=== PATIENT | male | born 1945 | race Caucasian/White ===

== ENCOUNTER 2017-03-31 17:49 | Emergency (ER) | payer OTHER, MEDICARE ==
[~2017-03-31] VITALS: Ht 172.7 cm; Wt 78.0 kg
[~2017-03-31 17:49] MED LIST: AMLO5 PO; PREV30CA36 PO; SINE25100 PO
[2017-03-31 17:53] VITALS: BP 182/99; PULSE 70; RESP 16; TEMP 98.8; O2SAT 97
[2017-03-31] MEDS ORDERED: MEMA28CA PO (18:05)
[2017-03-31] MEDS ORDERED: AMLO10TA2 PO (18:05)
[2017-03-31] MEDS ORDERED: oxyCODONE/ACETAMINOPHEN 5 MG/325 MG TAB PO ONE (18:15)
[2017-03-31] MEDS ORDERED: SODIUM CHLORIDE 0.9% FLUSH 10 ML FLUSH IVF PRN (18:15)
[2017-03-31 18:19] LABS: AUTOMATED NEUTROPHIL # 4.2 TH/MM3 (1.8-7.7); BASOPHIL # 0.3 TH/MM3 (0-0.2); BASOPHIL % 4.1 % (0.0-2.0); EOSINOPHIL # 0.3 TH/MM3 (0-0.4); EOSINOPHIL % 3.7 % (0.0-4.0); HEMATOCRIT 44.4 % (39.0-51.0); HEMO FLAGS DIFF FINAL; LYMPH % 28.7 % (9.0-44.0); LYMPHOCYTE # 2.1 TH/MM3 (1.0-4.8); MEAN CELL VOLUME 92.2 FL (80.0-100.0); MEAN CORPUSCULAR HEMOGLOBIN 30.8 PG (27.0-34.0); MEAN CORPUSCULAR HGB CONC 33.4 % (32.0-36.0); MONO % 5.5 % (0.0-8.0); PLATELET COUNT 197 TH/MM3 (150-450); RED BLOOD COUNT 4.82 MIL/MM3 (4.50-5.90); RED CELL DISTRIBUTION WIDTH 11.8 % (11.6-17.2); WHITE BLOOD COUNT 7.3 TH/MM3 (4.0-11.0)
[2017-03-31 18:30] VITALS: RESP 16; O2SAT 97
[2017-03-31 18:31] LABS: CHLORIDE 107 MEQ/L (98-107); SODIUM (NA) 142 MEQ/L (136-145)
[2017-03-31 18:33] LABS: ANION GAP 8 MEQ/L (5-15); BICARBONATE 27.1 MEQ/L (21.0-32.0); MAGNESIUM 2.4 MG/DL (1.5-2.5)
[2017-03-31 18:34] LABS: BLOOD UREA NITROGEN 16 MG/DL (7-18)
[2017-03-31 18:35] LABS: APTT (PATIENT) 29.9 SEC (24.3-30.1); INTERNATIONAL NORMALIZED RATIO 0.9 RATIO; PROTHROMBIN TIME - PATIENT 10.3 SEC (9.8-11.6)
[2017-03-31 18:37] LABS: GLOMERULAR FILTRATION RATE 60 ML/MIN (>89)
--- NOTE | 2017-03-31 18:37 | PD ---
HPI Chief Complaint: Musculoskeletal Complaint Time Seen by Provider: 18:05 Travel History International Travel<30 days: No Contact w/Intl Traveler<30days: No Traveled to known affect area: No History of Present Illness HPI 47 yo M complains of bilateral shoulder/trapezius pain. He has Parkinson's disease. At some point within the last couple weeks he either taper down his Sinemet dosing or stopped it abruptly at one point. He's had no chest pain or shortness of breath. No radiation of pain. His home health care agent notified EMS who brought the patient to the ER. timing constant, quality spasm. severity moderate. PFSH Past Medical History Arthritis: Yes Anxiety: Yes Cancer: No Cardiovascular Problems: Yes High Cholesterol: Yes Chemotherapy: Yes Diminished Hearing: Yes (HARD OF HEARING) Endocrine: No GERD: Yes Genitourinary: No Hypertension: Yes Immune Disorder: No Musculoskeletal: No Neurologic: No Parkinson's Disease: Yes (NO MEDICATIONS) Reproductive: No Immunizations Current: Yes Tetanus Vaccination: Unknown Influenza Vaccination: No Past Surgical History Abdominal Surgery: Yes (HERNIA- left groin) Eye Surgery: Yes (2 SURGERIES TO RIGHT EYE-MELANOMA) Oral Surgery: Yes (WISDOM TEETH) Other Surgery: No (esophagus stretched) Social History Alcohol Use: No Tobacco Use: No Substance Use: No Allergies-Medications (Allergen,Severity, Reaction): Coded Allergies: No Known Allergies (Verified , 03/31/17) Reported Meds & Prescriptions Reported Meds & Active Scripts Active Reported Namenda Xr (Memantine) 28 Mg Caper 28 Mg PO DAILY Amlodipine (Amlodipine Besylate) 10 Mg Tab 10 Mg PO DAILY Review of Systems Except as stated in HPI: all other systems reviewed are Neg Physical Exam Narrative GENERAL: 71 yo M, WNWD, NAD, pleasant SKIN: Warm and dry. HEAD: Atraumatic. Normocephalic. EYES: Pupils equal and round. No scleral icterus. No injection or drainage. ENT: No nasal bleeding or discharge. Mucous membranes pink and moist. NECK: Trachea midline. No JVD. CARDIOVASCULAR: Regular rate and rhythm. RESPIRATORY: No accessory muscle use. Clear to auscultation. Breath sounds equal bilaterally. GASTROINTESTINAL: Abdomen soft, non-tender, nondistended. Hepatic and splenic margins not palpable. MUSCULOSKELETAL: Extremities without clubbing, cyanosis, or edema. No obvious deformities. TTP trapezious musculature bilaterally. NEUROLOGICAL: Awake and alert. No obvious cranial nerve deficits. Motor grossly within normal limits. Five out of 5 muscle strength in the arms and legs. Normal speech. PSYCHIATRIC: Appropriate mood and affect; insight and judgment normal. Data Data Last Documented VS Vital Signs Date Time Temp Pulse Resp B/P Pulse Ox O2 Delivery O2 Flow Rate FiO2 03/31/17 18:52 67 16 156/78 95 03/31/17 18:30 Room Air 03/31/17 17:53 98.8 VS reviewed Orders Basic Metabolic Panel (Bmp) (03/31/17 18:05) Complete Blood Count With Diff (03/31/17 18:05) Magnesium (Mg) (03/31/17 18:05) Prothrombin Time / Inr (Pt) (03/31/17 18:05) Act Partial Throm Time (Ptt) (03/31/17 18:05) Ecg Monitoring (03/31/17 18:05) Iv Access Insert/Monitor (03/31/17 18:05) Oximetry (03/31/17 18:05) Oxygen Administration (03/31/17 18:05) Sodium Chloride 0.9% Flush (Ns Flush) (03/31/17 18:15) Oxycodone-Acetamin 5-325 Mg (Percocet (03/31/17 18:15) Acetamin-Hydrocod 325-5 Mg ([place] 5-325 (03/31/17 18:45) Chest, Single Ap (03/31/17 ) Labs Laboratory Tests Test 03/31/17 18:10 White Blood Count 7.3 TH/MM3 Red Blood Count 4.82 MIL/MM3 Hemoglobin 14.8 GM/DL Hematocrit 44.4 % Mean Corpuscular Volume 92.2 FL Mean Corpuscular Hemoglobin 30.8 PG Mean Corpuscular Hemoglobin 33.4 % Concent Red Cell Distribution Width 11.8 % Platelet Count 197 TH/MM3 Mean Platelet Volume 7.9 FL Neutrophils (%) (Auto) 58.0 % Lymphocytes (%) (Auto) 28.7 % Monocytes (%) (Auto) 5.5 % Eosinophils (%) (Auto) 3.7 % Basophils (%) (Auto) 4.1 % Neutrophils # (Auto) 4.2 TH/MM3 Lymphocytes # (Auto) 2.1 TH/MM3 Monocytes # (Auto) 0.4 TH/MM3 Eosinophils # (Auto) 0.3 TH/MM3 Basophils # (Auto) 0.3 TH/MM3 CBC Comment DIFF FINAL Differential Comment Prothrombin Time 10.3 SEC Prothromb Time International 0.9 RATIO Ratio Activated Partial 29.9 SEC Thromboplast Time Sodium Level 142 MEQ/L Potassium Level 4.0 MEQ/L Chloride Level 107 MEQ/L Carbon Dioxide Level 27.1 MEQ/L Anion Gap 8 MEQ/L Blood Urea Nitrogen 16 MG/DL Creatinine 1.20 MG/DL Estimat Glomerular Filtration 60 ML/MIN Rate Random Glucose 119 MG/DL Calcium Level 9.1 MG/DL Magnesium Level 2.4 MG/DL [facility] Medical Decision Making Medical Screen Exam Complete: Yes Emergency Medical Condition: Yes Medical Record Reviewed: Yes Differential Diagnosis muscle spasm, electrolyte imbalance, withdrawal from medication, renal failure, anemia, Parkinson's disease Narrative Course CBC & BMP Diagram 03/31/17 18:10 INR 0.9 Plain film pending at time of disposition. Troponin and EKG added. Oncoming provider will follow up imaging and reassess for disposition. Cornelio Chavez MD Mar 31, 2017 18:37
[2017-03-31] MEDS ORDERED: ACETAMINOPHEN/HYDROcodone 325 MG/5 MG TAB PO ONE (18:45)
[2017-03-31 18:52] VITALS: BP 156/78; PULSE 67; RESP 16; O2SAT 95
[2017-03-31 19:36] LABS: BLOOD, URINE TRACE (NEG); GLUCOSE,URINE NEG (NEG); KETONE, URINE NEG (NEG); NITRITE,URINE NEG (NEG)
[2017-03-31 19:42] LABS: COMMENT (UR) CULT NOT INDICATED; CULTURE IF INDICATED CULT NOT INDICATED; RBC, URINE 0-3 /hpf (0-3); SQUAMOUS EPITHELIAL CELL URINE 0-5 /hpf (0-5); URINE COLOR STRAW (YELLW/STRAW); WBC, URINE 0-2 /hpf (0-5)
[2017-03-31 19:43] LABS: CREATINE KINASE 58 U/L (39-308)
--- NOTE | 2017-03-31 19:46 | RADHPO ---
EXAM DATE/TIME: 03/31/2017 19:09 [facility] COMPARISON: No previous studies available for comparison. INDICATIONS : Short of breath. MEDICAL HISTORY : Hypercholesterolemia. Hypertension SURGICAL HISTORY : None. ENCOUNTER: Initial ACUITY: 1 day PAIN SCORE: 0/10 LOCATION: Bilateral chest FINDINGS: A single view of the chest demonstrates the lungs to be symmetrically aerated without evidence of mas s, infiltrate or effusion. The cardiomediastinal contours are unremarkable. Osseous structures are intact. Multiple cardiac leads project over the chest. CONCLUSION: The lungs are clear. Edy Robbins MD on March 31, 2017 at 19:44 Board Certified Radiologist. This report was verified electronically.
--- NOTE | 2017-03-31 19:57 | PD ---
Physical Exam Narrative Patient was seen by ED physician and signed out to me. Data Data Last Documented VS Vital Signs Date Time Temp Pulse Resp B/P Pulse Ox O2 Delivery O2 Flow Rate FiO2 03/31/17 18:52 67 16 156/78 95 03/31/17 18:30 Room Air 03/31/17 17:53 98.8 Orders Basic Metabolic Panel (Bmp) (03/31/17 18:05) Complete Blood Count With Diff (03/31/17 18:05) Magnesium (Mg) (03/31/17 18:05) Prothrombin Time / Inr (Pt) (03/31/17 18:05) Act Partial Throm Time (Ptt) (03/31/17 18:05) Ecg Monitoring (03/31/17 18:05) Iv Access Insert/Monitor (03/31/17 18:05) Oximetry (03/31/17 18:05) Oxygen Administration (03/31/17 18:05) Sodium Chloride 0.9% Flush (Ns Flush) (03/31/17 18:15) Oxycodone-Acetamin 5-325 Mg (Percocet (03/31/17 18:15) Acetamin-Hydrocod 325-5 Mg ([place] 5-325 (03/31/17 18:45) Chest, Single Ap (03/31/17 ) Electrocardiogram (03/31/17 ) Urinalysis - C+S If Indicated (03/31/17 19:13) Creatine Kinase (Cpk) (03/31/17 18:10) Troponin I (03/31/17 18:10) Labs Laboratory Tests Test 03/31/17 03/31/17 18:10 19:00 White Blood Count 7.3 TH/MM3 Red Blood Count 4.82 MIL/MM3 Hemoglobin 14.8 GM/DL Hematocrit 44.4 % Mean Corpuscular Volume 92.2 FL Mean Corpuscular Hemoglobin 30.8 PG Mean Corpuscular Hemoglobin 33.4 % Concent Red Cell Distribution Width 11.8 % Platelet Count 197 TH/MM3 Mean Platelet Volume 7.9 FL Neutrophils (%) (Auto) 58.0 % Lymphocytes (%) (Auto) 28.7 % Monocytes (%) (Auto) 5.5 % Eosinophils (%) (Auto) 3.7 % Basophils (%) (Auto) 4.1 % Neutrophils # (Auto) 4.2 TH/MM3 Lymphocytes # (Auto) 2.1 TH/MM3 Monocytes # (Auto) 0.4 TH/MM3 Eosinophils # (Auto) 0.3 TH/MM3 Basophils # (Auto) 0.3 TH/MM3 CBC Comment DIFF FINAL Differential Comment Prothrombin Time 10.3 SEC Prothromb Time International 0.9 RATIO Ratio Activated Partial 29.9 SEC Thromboplast Time Sodium Level 142 MEQ/L Potassium Level 4.0 MEQ/L Chloride Level 107 MEQ/L Carbon Dioxide Level 27.1 MEQ/L Anion Gap 8 MEQ/L Blood Urea Nitrogen 16 MG/DL Creatinine 1.20 MG/DL Estimat Glomerular Filtration 60 ML/MIN Rate Random Glucose 119 MG/DL Calcium Level 9.1 MG/DL Magnesium Level 2.4 MG/DL Total Creatine Kinase 58 U/L Troponin I LESS THAN 0.02 NG/ML Urine Color STRAW Urine Turbidity CLEAR Urine pH 6.0 Urine Specific [place] 1.005 Urine Protein NEG mg/dL Urine Glucose (UA) NEG mg/dL Urine Ketones NEG mg/dL Urine Occult Blood TRACE Urine Nitrite NEG Urine Bilirubin NEG Urine Leukocyte Esterase NEG Urine RBC 0-3 /hpf Urine WBC 0-2 /hpf Urine Squamous Epithelial 0-5 /hpf Cells Urine Bacteria NONE /hpf Microscopic Urinalysis Comment CULT NOT INDICATED MDM Supervised Visit with NELL: No Interpretation(s) 1950 PM. Chest x-ray shows no acute consolidation. CBC within normal limit. BMP within normal limit. Cardiac enzymes are normal. UA is negative. EKG shows sinus rhythm with right bundle-branch block. Nonspecific ST-T wave changes. Diagnosis Primary Impression: Musculoskeletal strain Patient Instructions: General Instructions Additional Instruction: Tylenol as needed for pain. Follow-up with personal physician. Return as needed. Return if worse. Return immediately if increasing chest pain or shortness of breath. Med/Other Pt SpecificInfo: No Change to Meds Disposition: 01 DISCHARGE HOME Condition: Stable Yogesh Ward MD Mar 31, 2017 19:57
[2017-03-31 20:42] VITALS: BP 148/78
--- NOTE | 2017-04-01 14:09 | EKG ---
Date Performed: 03/31/2017 Time Performed: 19:19:40 PTAGE: 71 years EKG: Sinus rhythm . Left axis deviation RBBB with left anterior fascicular block Possible anterior infarct - age undete rmined The Poor R wave progression could also be secondary to the extreme left axis deviation Compare d to prior tracing no significant change Abnormal ECG PREVIOUS TRACING : 07/11/2016 17.53 DOCTOR: Chuck Garcia Interpretating Date/Time 04/01/2017 14:07:42
== END 2017-03-31 20:43 | disposition home or self-care (01) ==
LOC: PHED 17:49
DX: S46.912A Strain of unspecified muscle, fascia and tendon at shoulder and upper arm level, left arm, initial encounter (principal); S46.911A Strain of unspecified muscle, fascia and tendon at shoulder and upper arm level, right arm, initial encounter; I45.2 Bifascicular block; G20 Parkinson's disease; E78.00 Pure hypercholesterolemia, unspecified; I10 Essential (primary) hypertension; K21.9 Gastro-esophageal reflux disease without esophagitis
CPT/HCPCS: 71010; 80048; 81001; 82550; 83735; 84484; 85025; 85610; 85730; 93005; 99285

== ENCOUNTER 2017-05-16 11:06 | Emergency (ER) | payer MEDICARE, OTHER ==
[~2017-05-16 11:06] MED LIST changes: +AMLO10TA2 PO; -AMLO5 PO; +MEMA28CA PO; -PREV30CA36 PO; -SINE25100 PO
[2017-05-16 11:10] VITALS: BP 146/79; PULSE 74; RESP 16; TEMP 99; O2SAT 95
[2017-05-16] MEDS ORDERED: SODIUM CHLORIDE 0.9% FLUSH 10 ML FLUSH IVF PRN (11:15)
--- NOTE | 2017-05-16 11:16 | PD ---
HPI Chief Complaint: dizziness Time Seen by Provider: 11:12 Travel History International Travel<30 days: No Contact w/Intl Traveler<30days: No Traveled to known affect area: No History of Present Illness HPI 71-year-old male with history of Parkinson's disorder, hypertension, high cholesterol, presents to the ER today because he states that he is getting intermittent dizziness. 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 His family is in [place] and his recent home health child care worker has had to leave for her own family emergency. Patient denies any recent fevers, chest pains, shortness of breath, vomiting, or other symptoms. He has been constipated for about 4-5 days. He states he has had this dizziness in the past intermittently. He did eat today, a breakfast bar this morning. 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) Oral Surgery: Yes (WISDOM TEETH) Other Surgery: No (esophagus stretched) Social History Alcohol Use: No Tobacco Use: No Substance Use: No Allergies-Medications (Allergen,Severity, Reaction): Coded Allergies: No Known Allergies (Verified , 03/31/17) Reported Meds & Prescriptions Reported Meds & Active Scripts Active Reported Namenda Xr (Memantine) 28 Mg Caper 28 Mg PO DAILY Amlodipine (Amlodipine Besylate) 10 Mg Tab 10 Mg PO DAILY Review of Systems Except as stated in HPI: all other systems reviewed are Neg Physical Exam Narrative GENERAL: Well-developed elderly white male patient currently in mild distress. Awake, alert, oriented 3. Slow to answer questions secondary to Parkinson's. SKIN: Focused skin assessment warm/dry. HEAD: Atraumatic. Normocephalic. EYES: Pupils equal and round. No scleral icterus. No injection or drainage. ENT: No nasal bleeding or discharge. Mucous membranes pink and moist. NECK: Trachea midline. No JVD. CARDIOVASCULAR: Regular rate and rhythm. No murmur appreciated. RESPIRATORY: No accessory muscle use. Clear to auscultation. Breath sounds equal bilaterally. GASTROINTESTINAL: Abdomen soft, non-tender, nondistended. Hepatic and splenic margins not palpable. MUSCULOSKELETAL: No obvious deformities. No clubbing. No cyanosis. No edema. NEUROLOGICAL: Awake and alert. No obvious cranial nerve deficits. Motor grossly within normal limits. Normal speech. PSYCHIATRIC: Appropriate mood and affect; insight and judgment normal. Data Data Last Documented VS Vital Signs Date Time Temp Pulse Resp B/P Pulse Ox O2 Delivery O2 Flow Rate FiO2 05/16/17 11:10 99.0 74 16 146/79 95 05/16/17 11:10 Room Air Orders Electrocardiogram (05/16/17 11:13) Complete Blood Count With Diff (05/16/17 11:13) Comprehensive Metabolic Panel (05/16/17 11:13) Magnesium (Mg) (05/16/17 11:13) Ckmb (Isoenzyme) Profile (05/16/17 11:13) Troponin I (05/16/17 11:13) Urinalysis - C+S If Indicated (05/16/17 11:13) Ecg Monitoring (05/16/17 11:13) Iv Access Insert/Monitor (05/16/17 11:13) Oximetry (05/16/17 11:13) Sodium Chloride 0.9% Flush (Ns Flush) (05/16/17 11:15) Ct Brain W/O Iv Contrast(Rout) (05/16/17 12:36) Labs Laboratory Tests Test 05/16/17 05/16/17 11:53 12:10 White Blood Count 9.6 TH/MM3 Red Blood Count 4.45 MIL/MM3 Hemoglobin 13.9 GM/DL Hematocrit 40.8 % Mean Corpuscular Volume 91.8 FL Mean Corpuscular Hemoglobin 31.3 PG Mean Corpuscular Hemoglobin 34.1 % Concent Red Cell Distribution Width 11.8 % Platelet Count 198 TH/MM3 Mean Platelet Volume 7.5 FL Neutrophils (%) (Auto) 72.8 % Lymphocytes (%) (Auto) 19.8 % Monocytes (%) (Auto) 3.9 % Eosinophils (%) (Auto) 0.8 % Basophils (%) (Auto) 2.7 % Neutrophils # (Auto) 6.9 TH/MM3 Lymphocytes # (Auto) 1.9 TH/MM3 Monocytes # (Auto) 0.4 TH/MM3 Eosinophils # (Auto) 0.1 TH/MM3 Basophils # (Auto) 0.3 TH/MM3 CBC Comment DIFF FINAL Differential Comment Sodium Level 143 MEQ/L Potassium Level 3.8 MEQ/L Chloride Level 109 MEQ/L Carbon Dioxide Level 27.0 MEQ/L Anion Gap 7 MEQ/L Blood Urea Nitrogen 12 MG/DL Creatinine 1.10 MG/DL Estimat Glomerular Filtration 66 ML/MIN Rate Random Glucose 108 MG/DL Calcium Level 8.7 MG/DL Magnesium Level 2.1 MG/DL Total Bilirubin 0.7 MG/DL Aspartate Amino Transf 12 U/L (AST/SGOT) Alanine Aminotransferase 8 U/L (ALT/SGPT) Alkaline Phosphatase 72 U/L Total Creatine Kinase 66 U/L Troponin I LESS THAN 0.02 NG/ML Total Protein 6.4 GM/DL Albumin 3.9 GM/DL Urine Collection Type CLEAN CATCH Urine Color YELLOW Urine Turbidity CLEAR Urine pH 6.0 Urine Specific [place] 1.010 Urine Protein NEG mg/dL Urine Glucose (UA) NEG mg/dL Urine Ketones TRACE mg/dL Urine Occult Blood TRACE Urine Nitrite NEG Urine Bilirubin NEG Urine Leukocyte Esterase NEG Urine RBC 4-9 /hpf Urine WBC 0-2 /hpf Urine Squamous Epithelial 0-5 /hpf Cells Microscopic Urinalysis Comment CULT NOT INDICATED Urine Collection Time 12:10 [facility] Medical Decision Making Medical Screen Exam Complete: Yes Emergency Medical Condition: Yes Medical Record Reviewed: Yes Interpretation(s) EKG shows normal sinus rhythm at a rate of 74 bpm with an LVH pattern. No signs of acute ST-T changes. Last [address] 05/16/17 1236 Signed Impressions: Service Date/Time: Tuesday, May 16, 2017 13:26 - CONCLUSION: Normal examination. Santiago Mullen MD Laboratory Tests Test 05/16/17 05/16/17 11:53 12:10 Red Blood Count 4.45 MIL/MM3 (4.50-5.90) Neutrophils (%) (Auto) 72.8 % (16.0-70.0) Basophils (%) (Auto) 2.7 % (0.0-2.0) Basophils # (Auto) 0.3 TH/MM3 (0-0.2) Chloride Level 109 MEQ/L (98-107) Estimat Glomerular Filtration 66 ML/MIN (>89) Rate Random Glucose 108 MG/DL (74-106) Aspartate Amino Transf 12 U/L (15-37) (AST/SGOT) Alanine Aminotransferase 8 U/L (12-78) (ALT/SGPT) Troponin I LESS THAN 0.02 NG/ML (0.02-0.05) Urine Ketones TRACE mg/dL (NEG) Urine Occult Blood TRACE (NEG) Urine RBC 4-9 /hpf (0-3) Differential Diagnosis Dizziness/inability to care for selfrule out metabolic issues versus dehydration versus sepsis Narrative Course EKG, lab work, CAT scan did not reveal any signs of acute processes. At this point, I have asked case management to talk to the patient's family and patient' s brother was contacted and he states that he would like to keep the patient home and get him a hydroelectric operator. He does not want the patient is institutionalized. I plan at this point would be to release the patient as per wishes of family and patient. Return for new issues as needed. The plan has been discussed with the family and patient and they state understanding. Diagnosis Primary Impression: Parkinsons disease Additional Impression: Dizziness Disposition: 01 DISCHARGE HOME Condition: Stable SoonTeofilo burns MD May 16, 2017 11:16
--- NOTE | 2017-05-16 11:45 | EKG ---
Date Performed: 05/16/2017 Time Performed: 11:21:00 PTAGE: 71 years EKG: Sinus rhythm MODERATE VOLTAGE CRITERIA FOR LVH, CONSIDER NORMAL VARIANT INFERIOR MYOCARDIAL INFARCTION ANTEROLATE RAL MYOCARDIAL INFARCTION PREVIOUS TRACING : 03/31/2017 19.19 DOCTOR: Santiago Mahmood Interpretating Date/Time 05/16/2017 11:45:01
[2017-05-16 12:00] LABS: AUTOMATED NEUTROPHIL # 6.9 TH/MM3 (1.8-7.7); BASOPHIL # 0.3 TH/MM3 (0-0.2); BASOPHIL % 2.7 % (0.0-2.0); EOSINOPHIL # 0.1 TH/MM3 (0-0.4); EOSINOPHIL % 0.8 % (0.0-4.0); HEMATOCRIT 40.8 % (39.0-51.0); HEMO FLAGS DIFF FINAL; LYMPH % 19.8 % (9.0-44.0); LYMPHOCYTE # 1.9 TH/MM3 (1.0-4.8); MEAN CELL VOLUME 91.8 FL (80.0-100.0); MEAN CORPUSCULAR HEMOGLOBIN 31.3 PG (27.0-34.0); MEAN CORPUSCULAR HGB CONC 34.1 % (32.0-36.0); MONO % 3.9 % (0.0-8.0); NEUT % 72.8 % (16.0-70.0); PLATELET COUNT 198 TH/MM3 (150-450); RED BLOOD COUNT 4.45 MIL/MM3 (4.50-5.90); RED CELL DISTRIBUTION WIDTH 11.8 % (11.6-17.2); WHITE BLOOD COUNT 9.6 TH/MM3 (4.0-11.0)
[2017-05-16 12:11] LABS: CHLORIDE 109 MEQ/L (98-107); POTASSIUM 3.8 MEQ/L (3.5-5.1); SODIUM (NA) 143 MEQ/L (136-145)
[2017-05-16 12:15] LABS: ANION GAP 7 MEQ/L (5-15); BLOOD UREA NITROGEN 12 MG/DL (7-18); MAGNESIUM 2.1 MG/DL (1.5-2.5)
[2017-05-16 12:18] LABS: ALT (GPT) 8 U/L (12-78); AST (GOT) 12 U/L (15-37); GLOMERULAR FILTRATION RATE 66 ML/MIN (>89)
[2017-05-16 12:19] LABS: TOTAL BILIRUBIN ADULT 0.7 MG/DL (0.2-1.0)
[2017-05-16 12:21] LABS: ALKALINE PHOSPHATASE 72 U/L (45-117); CREATINE KINASE 66 U/L (39-308)
[2017-05-16 12:28] LABS: BLOOD, URINE TRACE (NEG); GLUCOSE,URINE NEG (NEG); KETONE, URINE TRACE mg/dL (NEG); NITRITE,URINE NEG (NEG)
[2017-05-16 12:34] LABS: METHOD OF COLLECTION CLEAN CATCH
[2017-05-16 12:35] LABS: COMMENT (UR) CULT NOT INDICATED; CULTURE IF INDICATED CULT NOT INDICATED; SQUAMOUS EPITHELIAL CELL URINE 0-5 /hpf (0-5); URINE COLOR YELLOW (YELLW/STRAW); WBC, URINE 0-2 /hpf (0-5)
--- NOTE | 2017-05-16 13:56 | RADRPT ---
EXAM DATE/TIME: 05/16/2017 13:26 [facility] COMPARISON: CT BRAIN W/O CONTRAST, July 01, 2016, 11:13. INDICATIONS : Dizziness. RADIATION DOSE: 66.18 CTDIvol (mGy) MEDICAL HISTORY : Parkinson's. Hypertension. SURGICAL HISTORY : None. ENCOUNTER: Initial ACUITY: 4 - 6 days PAIN SCALE: 0/10 LOCATION: cranial TECHNIQUE: Multiple contiguous axial images were obtained of the head. Using automated exposure control and adj ustment of the mA and/or kV according to patient size, radiation dose was kept as low as reasonably a chievable to obtain optimal diagnostic quality images. DICOM format image data is available electro nically for review and comparison. FINDINGS: CEREBRUM: The ventricles are normal for age. No evidence of midline shift, mass lesion, hemorrhage or acute in farction. No extra-axial fluid collections are seen. POSTERIOR FOSSA: The cerebellum and brainstem are intact. The 4th ventricle is midline. The cerebellopontine angle i s unremarkable. EXTRACRANIAL: The visualized portion of the orbits is intact. SKULL: The calvaria is intact. No evidence of skull fracture. CONCLUSION: Normal examination. Santiago Mullen MD on May 16, 2017 at 13:54 Board Certified Radiologist. This report was verified electronically.
[2017-05-16 14:48] VITALS: BP 146/80; PULSE 82; RESP 18; O2SAT 97
== END 2017-05-16 16:17 | disposition home or self-care (01) ==
LOC: PHED 11:06
DX: G20 Parkinson's disease (principal); R42 Dizziness and giddiness; I10 Essential (primary) hypertension; Z79.899 Other long term (current) drug therapy
CPT/HCPCS: 70450; 80053; 81001; 82550; 83735; 84484; 85025; 93005; 99285